=== PATIENT | male | born 1955 | race Native Hawaiian/Other Pacific Islander ===

== ENCOUNTER 2019-02-18 09:10 | Outpatient (CLI) | payer BC ==
[2019-02-18 09:35] LABS: PLATELET COUNT 195 K/uL (142-355)
== END 2019-02-18 22:43 | disposition home or self-care (01) ==
LOC: LABW 09:10
PROVIDERS: Nurse Practitioner Family
DX: I10 Essential (primary) hypertension (principal)
CPT/HCPCS: 36415; 80053; 80061; 85027

== ENCOUNTER 2019-09-27 08:47 | Outpatient (CLI) | payer BC | END 2019-09-27 19:38 | disposition home or self-care (01) | LOC: US 08:47 | DX: R10.11 Right upper quadrant pain (principal) ==

== ENCOUNTER 2021-11-05 09:39 | Outpatient (CLI) | payer BC | END 2021-11-05 23:06 | disposition home or self-care (01) | LOC: MRI 09:39 | PROVIDERS: ATTEND Physician Assistant | DX: M54.16 Radiculopathy, lumbar region (principal) ==

== ENCOUNTER 2023-05-29 09:36 | Outpatient (CLI) | payer BC | END 2023-05-29 20:18 | disposition home or self-care (01) | LOC: US 09:36 | PROVIDERS: ATTEND Physician Assistant | DX: R42 Dizziness and giddiness (principal) ==